=== PATIENT | female | born 1990 | race Caucasian/White ===

== ENCOUNTER → 2023-04-30 | Outpatient (CLI) | payer OTHER ==
--- NOTE | 2023-04-30 22:30 | MR ---
EXAMINATION TYPE: MR cervical spine wo/w con DATE OF EXAM: 04/30/2023 3:42 PM CLINICAL INDICATION:Female, 32 years old with history of M54.2 cervicalgia; PHH, Pain left side of ne ck into left shoulder, headaches, weakness left arm/fingers COMPARISON: None. TECHNIQUE: Multi planar, multi sequence imaging was performed utilizing: T1-weighted, T2-weighted, an d turbo inversion recovery imaging of the cervical spine. IV Contrast: 6.5 cc Gadavist (none if empty) FINDINGS: Alignment: The cervical vertebral bodies have preserved heights. Alignment is within normal limits gi dutch patient positioning. Bones: Bone signal is within normal limits. No abnormal bone marrow edema on inversion recovery seque nces. No abnormal postcontrast enhancement. Cord: The spinal cord is unremarkable with regards to their signal intensity and morphology. No abnor mal postcontrast enhancement. Discs: Intervertebral disc signal is maintained. C2-C3: No significant disc pathology. The spinal canal is patent. No neural foraminal stenosis. C3-C4: No significant disc pathology. The spinal canal is patent. No neural foraminal stenosis. C4-C5: No significant disc pathology. The spinal canal is patent. No neural foraminal stenosis. C5-C6: No significant disc pathology. The spinal canal is patent. No neural foraminal stenosis. C6-C7: No significant disc pathology. The spinal canal is patent. No neural foraminal stenosis. C7-T1: No significant disc pathology. The spinal canal is patent. No neural foraminal stenosis. Other: None. IMPRESSION: 1. No evidence for disc herniation or significant spinal canal stenosis. No abnormal postcontrast enh ancement. 2. No significant disc degeneration.
== END | disposition home or self-care (01) ==
LOC: RADMRIMAIN 13:32
PROVIDERS: ATTEND Family Medicine
DX: M54.2 Cervicalgia (principal); M25.512 Pain in left shoulder; M79.18 Myalgia, other site; R51.9 Headache, unspecified; R53.83 Other fatigue
CPT/HCPCS: 72156; 73221; A9585